=== PATIENT | female | born 1935 | race Caucasian/White ===

== ENCOUNTER → 2017-01-31 | Outpatient (CLI) | payer MEDICARE, BC | END | disposition home or self-care (01) | LOC: RADPETMAIN 13:30 | PROVIDERS: ATTEND Internal Medicine Medical Oncology | DX: Z53.9 Procedure and treatment not carried out, unspecified reason (principal) ==

== ENCOUNTER → 2017-02-07 | Outpatient (CLI) | payer MEDICARE, BC ==
--- NOTE | 2017-02-10 09:44 | PE ---
Nuclear medicine PET/CT HISTORY: Malignant neoplasm of ascending colon Patient received 15.7 mCi F-18 FDG intravenously. Delayed scanning was performed from the skull base through the mid thighs. Localization and attenuation correction CT scan was also performed. No comparisons are available. Neck and chest: Nodule in the right upper lobe on axial image 73 measures 4 mm and shows some mild hy permetabolic uptake. SUV 1.2. Muscular activity is identified. There is no mediastinal, axillary, or hilar adenopathy. Small bilateral pleural effusions are present. The level of the patient's right-aguilar ed effusion medially on axial image 103 there is a focal area of hypermetabolic uptake, SUV 3.6, unde rlying mass could be obscured by fluid. Normal-sized pericardial node on axial image 114 shows SUV of 2. Right-sided PICC line is in place. Coronary artery calcifications are present. Internal mammary node is suspected on the left but nonenlarged with associated hypermetabolic uptake, SUV 3.1 Abdomen pelvis: Anterior to the liver and deep to the xiphoid there is a soft tissue mass measuring 1 2 mm in short axis which shows associated hypermetabolic uptake, SUV 9.7, anterior diaphragmatic node on the left on axial image 126 shows SUV 2.4. The liver shows multiple foci of abnormal uptake, SUV 3.4-4.6, vague area of low-attenuation is present within the left lobe, approximately 10 lesions are noted on PET. Portal adenopathy is suspected, there are areas of hypermetabolic uptake present at thi s level, SUV 5.3. Patient is status post right nephrectomy. Postop changes are noted to the right col on, there is a drainage catheter in place immediately adjacent, elevated activity is present at this level of the colon and catheter, SUV 4.6-6.6. There is a soft tissue density in the midline at the le niurka of the patient's scar which show some associated hypermetabolic uptake, SUV 6.7. Postop changes a re noted to the colon at this level. Muscular uptake is present. Adnexal regions also show some uptak e. No retroperitoneal adenopathy. Osseous structures: Unremarkable IMPRESSION: Findings suggest metastatic disease.
== END | disposition home or self-care (01) ==
LOC: RADPETMAIN 08:53
PROVIDERS: ATTEND Internal Medicine Medical Oncology
DX: C18.2 Malignant neoplasm of ascending colon (principal)
CPT/HCPCS: 78815; A9552